=== PATIENT | female | born 1960 | race Caucasian/White ===

== ENCOUNTER 2021-05-13 07:33 | Day surgery (SDC) | payer OTHER ==
[~2021-05-13] VITALS: Ht 157.5 cm; Wt 78.5 kg
[2021-05-13] MEDS ORDERED: MIDAZOLAM 5 MG/5 ML VIAL ONE (08:20)
[2021-05-13] MEDS ORDERED: fentaNYL citrate 0.05 MG/ML VIAL ONE (08:20)
[2021-05-13] MEDS ORDERED: diphenhydrAMINE 50 MG/ML VIAL ONE (08:20)
[2021-05-13] MEDS ORDERED: LIDOCAINE 2% 100 MG/5 ML UJET TP ONE (08:20)
[2021-05-13] MEDS ORDERED: fentaNYL citrate 0.05 MG/ML VIAL IVP ONE (12:55)
[2021-05-13] MEDS ORDERED: MIDAZOLAM 2 MG/2 ML VIAL IVP ONE (12:55)
== END 2021-05-13 09:41 | disposition home or self-care (01) ==
LOC: MDS 07:33 → MMU 07:34 → MDS 09:41
PROVIDERS: ATTEND Internal Medicine Gastroenterology
DX: Z12.11 Encounter for screening for malignant neoplasm of colon (principal); D12.2 Benign neoplasm of ascending colon; E11.9 Type 2 diabetes mellitus without complications; Z87.891 Personal history of nicotine dependence; Z79.899 Other long term (current) drug therapy
CPT/HCPCS: 45380; 45385; 88305; J2250; J3010; J1200